=== PATIENT | male | born 1965 | race Caucasian/White ===

== ENCOUNTER 2025-07-30 11:28 | Outpatient (AMB) | payer OTHER, SELFPAY ==
--- NOTE | 2025-07-30 11:31 | A.OFFPC_ITS ---
Vital Signs 07/30/25 11:35 Height 5 ft 11.26 in Weight 242 lb BMI 33.5 BP 128/84 Blood Pressure Location Lt brachial Position Sitting Respiration 18 Pulse 60 Pulse Source Pulse Oximeter Temp 97.2 F Temp Source Temporal Artery Scan Pulse Oximetry (%) 97 Oxygen Delivery Method Room Air Intake Visit Reasons: Establish Care/Physical Web Merchandiser Required: No Accompanied by: Self / Same As Patient Allergies No Known Allergies Allergy (Verified 07/30/25 11:33) Medication List - Last Reconciled 07/30/25 by Ciro Espinoza MD No Known Home Meds Tobacco use date assessed: 07/30/25 Dental Screening Dental Screen Date: 07/30/25 Did you have a dental visit in the last 12 months?: No Did you have a dental problem in the last 6 months where you did not have access to dental care?: No Was dental information given to patient?: Patient has dentist HPI HPI Comments History of Present Illness Details History of Present Illness The patient is a 60-year-old male presenting to [facility] care with a new primary care physician. His previous primary care provider was last seen 9-12 months ago. The patient was diagnosed with stage 0 Chronic Lymphocytic Leukemia (CLL) in May 2013 and is managed under a [id number] protocol at [facility]. He reports he self-diagnosed the condition after experiencing 4-5 bouts of gout monthly, which prompted bloodwork that revealed elevated white blood cells. He is not on any targeted therapy, biologics, or immunotherapy for his CLL. He experiences significant cancer-related fatigue. The patient has a history of hyperlipidemia and gout, for which he was previously prescribed atorvastatin and allopurinol, but he stopped taking these medications 6-7 months ago. A review of recent labs from June 12 revealed stage 2 kidney disease. The patient reports a 50-pound weight gain in the last six months, which he attributes to poor diet and not exercising. 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 He has been unemployed for two years and is currently seeking disability benefits. A depression screening was positive for mild depression, which the patient describes as situational due to financial worries. Medical History: - Chronic Lymphocytic Leukemia (CLL), st age 1, diagnosed in May 2013. - History of gout, with multiple episode s leading to CLL diagnosis. - History of hyperlipidemia. - Mild depression, situational. - Stage 2 chronic kidney disease. Surgical History: - Bilateral rotator cuff repairs (twice on each shoulder). - Knee surgery (unspecified). - Cholecystectomy. Medications: - The patient is not currently on any me dications. - He was previously prescribed allopurin ol and atorvastatin but discontinued them 6-7 months ago. Family History: - Denies any known family history of hea rt disease, diabetes, or cancers. Diagnostic Results: - Lab results from June 12 were revi ewed: - CBC: White blood cell count is throug h the roof, consistent with leukemia. - Comprehensive Metabolic Panel: Results are good. - Liver Function: Results are good. - Kidney Function: Indicates stage 2 kid brenda disease. - LDH: Result is good. 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 - Social Support: Has a girlfriend. - Substance Use: Denies any history of s moking, alcohol use, or illicit drug use. - Exercise and Diet: Former athlete who is not currently exercising and eating poorly, resulting in a 50-pound weight gain over six months. Health Maintenance - A referral will be placed for a screen ing colonoscopy, as the patient is overdue. - Advised the patient to receive his rafael ual influenza vaccine, updated COVID-19 vaccine, and RSV vaccine, particularly given his immunocompromised state due to CLL. - Discussed the importance of resuming a regular exercise routine to aid in weight management, improve mood, and support overall health. - Baseline laboratory studies were order ed to screen for various health issues, including cholesterol, blood sugar, vitamin D, B12, and thyroid function. Patient was informed and verbally consented to the use of an ambient scribe for clinic note documentation during this visit. Vital signs reviewed. Comprehensive history, review of systems, and physical exam completed. Medications, allergies, and problem list reviewed and updated. Counseling provided on nutrition, regular exercise, sleep hygiene, and moderation of alcohol use. Discussed age-appropriate screenings (mammogram, colonoscopy, Pap, bone density) and immunizations (flu, COVID, shingles, Tdap). Screened for depression, fall risk, and home safety; no current concerns. Discussed stress management, dental and vision care, and importance of ongoing preventive follow-up. Routine labs ordered for metabolic and lipid screening. Patient educated on healthy lifestyle and agrees with the plan. [facility] Medical History (Updated 07/30/25 @ 12:04 by Ciro Espinoza MD) Annual physical exam CLL (chronic lymphocytic leukemia) Mild depression CALE (obstructive sleep apnea) Social History Housing: House Patient Tobacco Use Status: Never used Tobacco e-Cigarette/Vaping Use: Never Used service: No Current occupational status: unemployed Questionnaire PHQ-9 Over the last 2 weeks, how often have you been bothered by any of the following problems? 1. Little interest or pleasure in doing things: several days 2. Feeling down, depressed, or hopeless: several days 3. Trouble falling or staying asleep, or sleeping too much: not at all 4. Feeling tired or having little energy: more than half the days 5. Poor appetite or overeating: several days 6. Feeling bad about yourself - or that you are a failure or have let yourself or your family down: not at all 7. Trouble concentrating on things, such as reading the newspaper or watching television: not at all 8. Moving or speaking so slowly that other people could have noticed. Or the opposite - being so fidgety or restless that you have been moving around a lot more than usual: not at all 9. Thoughts that you would be better off or of hurting yourself in some way: not at all Total score: 5 Depression Screening Interpretation: Negative Depression Screening Done: Yes 54870 - PHQ-9 Billing: Yes Source: Developed by Drs. Hong Pascual, Leilani Trammell, Deng Church and colleagues, with an educational nelson from [employer]. Thrive Questionnaire Date Thrive assessed: 07/30/25 I am a: Patient What is your living situation today?: I have a steady place to live Within the past 12 months, did the food you bought not last and you didn't have the money to get more?: Never true Within the past 12 months, did you worry whether your food would run out before you got money to buy more?: Never true Do you have trouble paying for medicines?: No Do you have trouble getting transportation to medical appointments?: No Do you have trouble paying your heating and electricity bill?: No Do you have trouble taking care of your child, family member or friend?: No Do you have trouble with day-to-day activities such as bathing, preparing meals, shopping, managing finances, etc.?: No Are you currently unemployed and looking for a job?: No Are you interested in more education?: No THRIVE Score: 0 AUDIT C Alcohol Use Questionnaire (AUDIT-C) 1. How often do you have a drink containing alcohol?: Never 3. How often do you have six or more drinks on one occasion?: Never Total Score: 0 Score Reviewed/Action Taken: Yes WILLY-7 AMB Questionnaire WILLY-7 Date WILLY - 7 assessed: 07/30/25 Feeling nervous, anxious, or on edge: 1 = Several days Not being able to stop or control worryin = Not at all Worrying too much about different things: 0 = Not at all Trouble relaxin = Not at all Being so restless that it is hard to sit still: 0 = Not at all Becoming easily annoyed or irritable: 0 = Not at all Feeling afraid as if something awful might happen: 0 = Not at all Total WILLY-7 score (0-4 normal; 5-9 mild; 10-14 moderate; 15-21 severe): 1 Source: Developed by Drs. Hong Pascual, Leilani Trammell, Deng Church and colleagues, with an educational nelson from [employer]. WILLY-7 Assessment Billing WILLY-7 Assessment Tool: WILLY-7 Assessment 62501 Review of Systems Narrative Review of Systems - Constitutional: Reports significant fatigue, feeling tired more than half the days. - Psychiatric: Reports feeling down, depressed, and having little interest or pleasure in doing things for several days. - Neurological: Denies headaches, trouble concentrating. - HEENT: Denies vision changes. - Cardiovascular: Denies chest pain. - Respiratory: Denies shortness of breath. - Gastrointestinal: Denies nausea and vomiting; reports normal bowel movements. - Genitourinary: Reports normal urination. - Musculoskeletal: Denies swelling in the legs. All systems reviewed & are unremarkable except as reviewed in HPI and above Physical exam (Primary Care) Vital Signs: Last Vital Signs Temp 97.2 F 07/30/25 11:35 Pulse 60 07/30/25 11:35 Resp 18 07/30/25 11:35 BP 128/84 07/30/25 11:35 Pulse Ox 97 07/30/25 11:35 Oxygen Delivery Method Room Air 07/30/25 11:35 BMI result Body Mass Index 33.5 Tobacco/Smoking Status: Tobacco use Status Tobacco use date assessed 07/30/25 07/30/25 11:37 Patient Tobacco Use Status Never used Tobacco 07/30/25 11:37 e-Cigarette/Vaping Use Never Used 07/30/25 11:37 PHQ-9: PHQ-9 Score PHQ-9: Total score 5 07/30/25 11:48 Depression Screening Interpretation: Negative Thrive Assessment: Date of Thrive Assessment Date Thrive assessed 07/30/25 07/30/25 11:48 Narrative Physical Exam General: +Alert and oriented, Well nourished, No acute distress. Eye: Pupils are equal, round and reactive to light, Intact accommodation, Extraocular movements are intact, Normal conjunctiva, Vision unchanged. HENT: Normocephalic, Atraumatic, Tympanic membranes are clear, Normal hearing, Oral mucosa is moist, No pharyngeal erythema, Ear canals patent. Respiratory: Lungs CTA bilaterally, No wheeze, Respirations are non-labored. Cardiovascular: Regular rate, Regular rhythm, S1 auscultated, S2 auscultated, No murmur, Good pulses equal in all extremities, Normal peripheral perfusion, No edema. Gastrointestinal: Soft, Non-tender, Non-distended, Normal bowel sounds, No organomegaly. Musculoskeletal: Normal range of motion, Normal strength, No tenderness, No swelling, No deformity, Normal gait. Integumentary: Warm, Dry, [place], Intact. Neurologic: Alert, Oriented, Normal sensory, Normal motor function, No focal defects, Cranial Nerves II-XII are grossly intact, Normal deep tendon reflexes. Psychiatric: Cooperative, Appropriate mood & affect, Normal judgment, Positive for mild depression. Coding Level of Care Code New Pt Level 3 (73107) New Pt Prev Care 40-64y(29326) Diagnoses CALE (obstructive sleep apnea) G47.33 Mild depression F32.A CLL (chronic lymphocytic leukemia) C91.10 Annual physical exam Z00.00 Additional Codes WILLY-7 Assessment Billing - WILLY-7 Assessment Tool: WILLY-7 Assessment 32357 ([id number]) PHQ-9 - 57078 - PHQ-9 Billing: Yes ([id number]) Comment [id number] Assessment & Plan Assessment & Plan (1) CALE (obstructive sleep apnea): Comment: - The patient's significant fatigue is considered multifactorial, related to his CLL, depression, and possible sleep apnea. - A workup will include baseline labs (including vitamin D, B12, TSH) to assess for other organic causes. - A referral for a sleep study will be made to evaluate for sleep apnea, given recent weight gain and snoring. Code(s): G47.33 - Obstructive sleep apnea (adult) (pediatric) Category: Medical (2) Mild depression: Comment: - A depression screen was positive for mild depression, which the patient feels is situational due to unemployment and financial stress. - The patient declined a trial of antidepressant medication. - The patient was encouraged to resume exercising, which may help improve his mood. Code(s): F32.A - Depression, unspecified Category: Medical (3) CLL (chronic lymphocytic leukemia): Comment: - The patient has a known diagnosis of stage 0 CLL since 2012 and is managed under a wait and watch protocol with his oncologist at [facility]. - A review of labs from June 12 showed a very high white blood cell count, consistent with his diagnosis. - He is not currently on any targeted therapy or immunotherapy. - Plan is to continue current management with his oncology team. Code(s): C91.10 - Chronic lymphocytic leukemia of B-cell type not having achieved remission Category: Medical (4) Annual physical exam: Comment: - A referral will be placed for a screening colonoscopy as the patient is overdue. - The patient was advised to get his annual influenza, updated COVID-19, and RSV immunizations, as he is immunocompromised. Code(s): Z00.00 - Encounter for general adult medical examination without abnormal findings Category: Medical Plan: Health Maintenance: - A referral will be placed for a screening colonoscopy, as the patient is overdue. - Advised the patient to receive his annual influenza vaccine, updated COVID-19 vaccine, and RSV vaccine, particularly given his immunocompromised state due to CLL. - Discussed the importance of resuming a regular exercise routine to aid in weight management, improve mood, and support overall health. - Baseline laboratory studies were ordered to screen for various health issues, including cholesterol, blood sugar, vitamin D, B12, and thyroid function. Patient was informed and verbally consented to the use of an ambient scribe for clinic note documentation during this visit. Vital signs reviewed. Comprehensive history, review of systems, and physical exam completed. Medications, allergies, and problem list reviewed and updated. Counseling provided on nutrition, regular exercise, sleep hygiene, and moderation of alcohol use. Discussed age-appropriate screenings (mammogram, colonoscopy, Pap, bone density) and immunizations (flu, COVID, shingles, Tdap). Screened for depression, fall risk, and home safety; no current concerns. Discussed stress management, dental and vision care, and importance of ongoing preventive follow-up. Routine labs ordered for metabolic and lipid screening. Patient educated on healthy lifestyle and agrees with the plan. Plan I discussed with the patient that his prominent symptom of fatigue is likely multifactorial, stemming from his underlying CLL, situational depression, and a high suspicion for sleep apnea given his recent 50-pound weight gain and reports of snoring. We discussed the results of his depression screen, which indicated mild depression, and he agreed it felt situational due to his unemployment and financial stress; he declined a trial of medication at this time. The patient consented to a referral for a sleep study and for comprehensive baseline lab work. We also discussed the importance of weight loss through exercise, which would not only improve his mood but could also mitigate or resolve sleep apnea if diagnosed. I placed a referral for a screening colonoscopy as he is past due. I strongly recommended he obtain his annual flu, updated COVID-19, and RSV vaccines due to his immunocompromised status. The plan is to follow up in six months or sooner if needed to review results and address any concerns. Orders: Orders Complete Blood Count Auto Diff Today Z00.00 - Encounter for general adult medical examination without abnormal findings Comprehensive Met. Panel Today Z00.00 - Encounter for general adult medical examination without abnormal findings Hemoglobin A1c Today Z00.00 - Encounter for general adult medical examination without abnormal findings Hepatitis A,B,C Profile Today Z00.00 - Encounter for general adult medical exa mination without abnormal findings HIV Ab/Ag Today Z00.00 - Encounter for general adult medical examination without abnormal findings Microalbumin, Random (w Creat) Today Z00.00 - Encounter for general adult medical examination without abnormal findings Syphilis Screen Today Z00.00 - Encounter for general adult medical examination without abnormal findings TSH reflex Free T4 Today Z00.00 - Encounter for general adult medical examination without abnormal findings RT PSG in-lab sleep study Today G47.33 - Obstructive sleep apnea (adult) (pediatric) Lipid Panel Today Z00.00 - Encounter for general adult medical examination without abnormal findings Vitamin D 25-OH Total Today Z00.00 - Encounter for general adult medical examination without abnormal findings Referrals Open Access Screening Colonoscopy Referral Z12.11 - Encounter for screening for malignant neoplasm of colon Patient Instructions: - Go to the hospital lab across the street today to have your blood drawn. - You will be contacted by our office to schedule a colonoscopy and a sleep study. - It is very important that you get your annual flu shot, the updated COVID-19 vaccine, and the RSV vaccine. - Focus on resuming regular exercise to help with weight loss, which will also improve your mood and overall health. - Please schedule a follow-up appointment in about six months, or call us sooner if any new problems arise.
[2025-07-30 11:35] VITALS: BP 128/84; PULSE 60; RESP 18; TEMP 36.2; O2SAT 97; BMI 33.5
--- OUTSIDE RECORDS SUMMARY | 2025-07-31 02:17 | XMS_ITS | Clinical Summary ---
Author Organization [facility] Address [address] [place] [address] Care Team Providers Care Casing Running Machine Tender Name Role Phone Flavio Garcia Primary Care Provider [phone] Allergies No known active allergies Medications atorvastatin (LIPITOR) 40 mg tablet SMARTSI Tablet(s) By Mouth Daily 05/25/2024 Active allopurinoL (ZYLOPRIM) 100 mg tablet SMARTSI Tablet(s) By Mouth Daily Active fish oil 340-1,000 mg capsule Take 1,000 mg by mouth once a day. Active glucosamine sulfate (Glucosamine) 500 mg tablet Take by mouth. Active multivitamin (THERAGRAN) tablet Take 1 tablet by mouth once a day. Active aspirin tablet 325 mg Take 1 tablet (325 mg total) by mouth once a day. 14 tablet 07/27/2024 Active acetaminophen (TYLENOL) 500 mg tablet Take 1 tablet (500 mg total) by mouth every 6 hours as needed for pain. 40 tablet 07/27/2024 Active cephalexin (KEFLEX) 500 mg capsule Take 1 capsule (500 mg total) by mouth 4 times a day. 12 capsule 07/27/2024 Active Active Problems Problem Noted Date Diagnosed Date Impingement of left shoulder 06/06/2024 Subacromial impingement of right shoulder 2023 Acute pain of right shoulder 10/24/2018 Anxiety as acute reaction to exceptional stress 06/29/2017 Health care maintenance 06/29/2017 Cough 09/22/2016 Asthma, cold induced, mild intermittent, uncompl icated 11/07/2015 Cough variant asthma 10/08/2015 Gastroesophageal reflux disease 09/26/2015 Rhinitis 09/26/2015 Acute nonsuppurative otitis media of right ear 1 Bipolar affective disorder 06/26/2015 Viral gastroenteritis 01/13/2015 Elbow pain 03/01/2014 Acute pharyngitis 09/20/2013 Folliculitis 09/15/2012 Finger injury 06/04/2011 Pain, joint, shoulder 02/02/2011 Immunizations Immunization Administration Dates Next Due INFLUENZA, SPLIT VIRUS, TRIVALENT, PF 07/11/2013 ,06/04/2011 Influenza, Trivalent, MDV, Injectable 06/21/2015 ,07/24/2012 Seasonal Influenza, Intrader mal, Preservative Free 06/29/2017 Tetanus Toxoid, Reduced Diph theria Toxoid, and Acellular Pertussis Vaccine, Adsorbed 11/07/2015 Tuberculin Skin Test; Purifi ed Protein Derivative Solution, Intradermal 05/20/2015,07/24/2012,06/04/2011 Family History Medical History Relation Name Comments Heart disease Father Hypertension Father Other Mother Family history of Deep vein thrombosis, antepartum Relation Name Status Comments Father Alive Mother Alive Social History Tobacco Use Types Packs/Day Years Used Date Smoking Tobacco: Never Smokeless Tobacco: Never Comments:: Alcohol Use Standard Drinks/Week Comments Not Currently 0 (1 standard drink = 0.6 oz pur e alcohol) Sex and Gender Information Value Date Recorded Sex Assigned at Male 11/01/2023 6:08 AM EST Legal Sex Male 9:50 AM EDT Gender Identity Male 11/01/2023 6:08 AM EST Sexual Orientation Straight 11/01/2023 6: 08 AM EST Last Filed Vital Signs Vital Sign Reading Time Taken Comments Blood Pressure 120/80 12/25/2018 8:21 AM EDT Pulse 55 12/25/2018 8:21 AM EDT Temperature 36.8 C (98.2 F) 12/25/2018 8:21 AM EDT Respiratory Rate 18 12/25/2018 8:21 AM EDT Oxygen Saturation 96% 12/25/2018 8:21 AM EDT Inhaled Oxygen Concentration - - Weight 98.3 kg (216 lb 12.8 oz) 12/25/2018 8:21 AM EDT Height 182.9 cm (6') 12/25/2018 8:21 AM EDT Body Mass Index 29.4 12/25/2018 8:21 AM EDT Plan of Treatment Health Maintenance Due Date Last Done Comments HIV Screening 1965 Hepatitis C Screening 1965 RSV Vaccine (60+ years old and patients) (1 - Risk 50-74 years 1-dose series) 2015 Colonoscopy 11/18/2016 11/19/2015 Alcohol/Substance Use Screening 09/12/2024 Depression Screening and Follow-Up 09/12/2024 Social Drivers of Health Annual Screening 09/12/2024 Influenza Vaccine (#1) 2025 , 07/26/2022, 06/23/2021, Additional history exists COVID-19 Vaccine ( season) 2025 06/16/2023, 07/26/2022, 04/16/2022, Additional history exists DTaP,Tdap,and Td Vaccines (2 - Td or Tdap) 11/07/2025 11/07/2015 Pneumococcal Vaccine: 50+ Years Completed 06/24/2023 Zoster Vaccines Completed 08/29/2023, 06/29/2023 Hepatitis B Vaccines Aged Out No long er eligible based on patient's age to complete this topic Procedures * Due to [place] [employer] law, this organization might not be sharing negative HIV tests. Procedure Name Priority Date/Time Associated Diagnosis Comments COLONOSCOPY 11/19/2015 11:42 AM EST from Last 3 Months or Most Recently Relevant to Health Maintenance Results * Due to [facility] law, this organization might not be sharing negative HIV tests. * COLONOSCOPY (11/19/2015 11:42 AM EST) Narrative Procedure Note Matias Russell MD - 11/19/2015 11:42 AM EST Patient Name: Stefan Malagon Procedure Date: 11/19/2015 11:42 AM Date of : 1965 Age: 50 Room: Procedure Room 3 Gender: Male Note Status: Finalized Attending MD: Matias Russell MD Procedure: Colonoscopy Indications: Screening for colorectal malignant neoplasm Providers: Matias Russell MD Referring MD: Maury Barrow MD (Referring MD) Requesting Provider: Medicines: Monitored Anesthesia Care Complications: No immediate complications. Procedure: After I obtained informed consent, the scope was passed under direct vision. Throughout the procedure, the patient's blood pressure, pulse, and oxygen saturations were monitored continuously. The Colonoscope was introduced through the anus and advanced to theterminal ileum, with identification of the appendiceal orificeand IC valve. The colonoscopy was performed without difficulty. The patient tolerated the procedure well.The quality of the bowel preparation was good. The bowel preparation used was MoviPrep. Findings: The perianal and digital rectal examinations were normal. The terminal ileum appeared normal. A 6 mm polyp was found in the ascending colon. The polyp was flat.The polyp was removed with a hot snare. Resection and retrieval were complete. Three sessile polyps were found in the transverse colon. The polypswere 3 to 4 mm in size. These polyps were removed with a cold biopsyforceps. Resection and retrieval were complete. Three sessile polyps were found in the descending colon. The polypswere 4 to 5 mm in size. These polyps were removed with a cold snare. Resection and retrieval were complete. A 1 mm polyp was found in the sigmoid colon. The polyp was sessile.The polyp was removed with a cold snare. Resection and retrieval were complete. A 5 mm polyp was found in the rectum. The polyp was sessile. Thepolyp was removed with a cold snare. Resection and retrieval werecomplete. Internal hemorrhoids were found during retroflexion. The hemorrhoids were small. A few small-mouthed diverticula were found in the sigmoid colon andin the descending colon. The exam was otherwise without abnormality. Impression: - The examined portion of the ileum was normal. - One 6 mm polyp in the ascending colon. Resected and retrieved. - Three 3 to 4 mm polyps in the transverse colon.Resected and retrieved. - Three 4 to 5 mm polyps in the descending colon.Resected and retrieved. - One 1 mm polyp in the sigmoid colon. Resected and retrieved. - One 5 mm polyp in the rectum. Resected andretrieved. - Internal hemorrhoids. - Diverticulosis in the sigmoid colon and in the descending colon. - The examination was otherwise normal. Recommendation: - Discharge patient to home. - Resume previous diet. - Await pathology results. - Telephone endoscopist for pathology results in 1week. - Repeat colonoscopy in 1 year for surveillance. - Return to primary care physician as previouslyscheduled. Attending Participation: I personally performed the entire procedure. Matias Russell MD 11/19/2015 1:52:37 PM This report has been signed electronically. Number of Addenda: 0 Note Initiated On: 11/19/2015 11:42 AM CC Letter to: Maury Barrow MD (CC) Estimated Blood Loss: Estimated blood loss was minimal. Matias Russell MD PROVATION PROCEDURES Final Resul t from Last 3 Months or Most Recently Relevant to Health Maintenance Insurance [employer] Care Teams Casing Running Machine Tender Relationship Specialty Start Date End Date Flavio Garcia PCP - General Internal Medicine 12/25/18
--- OUTSIDE RECORDS SUMMARY | 2025-07-31 02:17 | XMS_ITS | Clinical Summary ---
Author Organization [facility] Address [address] [place] [address] Care Team Providers Care Cougar Hunter Name Role Phone Unknown, Primary Care Provider Unavailabl e Social History Tobacco Use Types Packs/Day Years Used Date Smoking Tobacco: Never Assessed Sex and Gender Information Value Date Recorded Sex Assigned at Not on file Gender Identity Not on file Sexual Orientation Not on file Job Start Date Occupation Industry Not on file Not on file Not on file Plan of Treatment Health Maintenance Due Date Last Done Comments Hepatitis C Screening 1965 Depression Screening 1977 Preventative Health Evaluation 1983 Colon Cancer Screening (Colonoscopy) 2010 Shingrix-Zoster Vaccine (1 of 2) 2015 COVID-19 Vaccine (2 - season) 2025 12/22/2020 Influenza Vaccine (#1) 2025 , 11/10/2018, 11/10/2018, Additional history exists DTap / Tdap / Td (2 - Td or Tdap) 11/07/2025 11/07/2015 RSV Adult > 60+ Yrs or (1 - 1-dose 75+ series) 2040 Hepatitis B Vaccines Aged Out No long er eligible based on patient's age to complete this topic Pneumococcal Vaccine Aged Out No long er eligible based on patient's age to complete this topic RSV Ped < 20 months Aged Out No longe r eligible based on patient's age to complete this topic Care Teams Cougar Hunter Relationship Specialty Start Date End Date Unknown, PCP - General 04/27/23
--- OUTSIDE RECORDS SUMMARY | 2025-07-31 02:17 | XMS_ITS | Encounter Summary ---
Author Organization [facility] Address [address] [place] [address] Care Team Providers Care Procurement Services Manager Name Role Phone Flavio Garcia MD Primary Care Provider [phone] Unknown Pcp, Non [facility] Primary Care Provider Unava ilable Reason for Visit * Reason Comments No Show Encounter Details Date Type Department Care Team (Late st Contact Info) Description 05/25/2019 Telephone [facility] [address] [place] [id number] Erlin Lewis MD [address] [place] [address] No Show Social History Tobacco Use Types Packs/Day Years Used Date Smoking Tobacco: Never Smokeless Tobacco: Never Sex and Gender Information Value Date Recorded Sex Assigned at Not on file Legal Sex Male 3:47 PM EDT Gender Identity Not on file Sexual Orientation Not on file documented as of this encounter Miscellaneous Notes * Telephone Encounter - Opal Motta - 06/22/2019 1:24 PM EDT Your patient did not show for his GI procedure at [facility] on 05/25[facility]19 with Erlin Lewis MD. We have attempted to call him x2 to reschedule and sent him 2 certified letters to call us to reschedule. There has been no response in over 10 business days. If you still want this procedurefor him, please have your office follow up with him and have him call our office. We will proceed with scheduling if we hear from this patient. * Telephone Encounter - Opal Motta - 06/06/2019 10:57 AM EDT Left message for patient to call [facility] to reschedule. Sent Certified # [id number]. * Telephone Encounter - Opal Motta - 05/28/2019 12:18 PM EDT Left message for patient to call [facility] to reschedule. Sent Certified # [id number] and standard. * Telephone Encounter - Opal Motta - 05/25/2019 11:14 AM EDT This patient no showed his colonoscopy today 05/25/[address] Lewis. I left a message for the patient to call the endoscopy center back to reschedule. documented in this encounter Plan of Treatment Not on file documented as of this encounter Visit Diagnoses Not on filedocumented in this encounter Care Teams Procurement Services Manager Relationship Specialty Start Date End Date Flavio Garcia MD [address] [place] [id number] PCP - General Internal Medicine 04/27/18 01/28/21 Unknown Pcp, Non [facility] PCP - General 01/29/21 documented as of this encounter
--- OUTSIDE RECORDS SUMMARY | 2025-07-31 02:18 | XMS_ITS | Clinical Summary ---
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 1 Tube 2 9 Active Sodium Chloride 0.9 % solution Infuse 1,000 mL/hr into a venous catheter - Administer intravenously at the rate of 1000ml per hour 1000 mL 9 Active Active Problems No known active problems Immunizations Immunization Administration Dates Next Due Influenza,injectable,quad,Prsrv Fr 11/10/2018, Influenza,seasonal,intradermal,prsrv fr 06/29/20 17 Influenza,seasonal,trivalent ,preservative (FLUZONE MDV) 06/21/2015,07/24/2012 Tdap 11/07/2015 influenza,seasonal,trivalent ,PF (Fluzone, Fluarix, Flulaval) 07/11/2013,06/04/2011 Social History Tobacco Use Types Packs/Day Years Used Date Smoking Tobacco: Never Smokeless Tobacco: Never Intimate Partner Violence Answer Date R ecorded Fear of Current or Ex-Partner Not on file Emotionally Abused Not on file 05/05/2023 Physically Abused Not on file 05/05/2023 Sexually Abused Not on file 05/05/2023 Feel Safe at Home Not on file 05/05/2023 Sex and Gender Information Value Date Recorded Sex Assigned at Not on file Legal Sex Male 3:47 PM EDT Gender Identity Not on file Sexual Orientation Not on file Last Filed Vital Signs Vital Sign Reading Time Taken Comments Blood Pressure 121/82 08/26/2019 10:30 AM EST Pulse 78 08/26/2019 10:30 AM EST Temperature 37.2 C (98.9 F) 08/26/2019 10:30 AM EST Respiratory Rate 18 08/26/2019 10:30 AM EST Oxygen Saturation 98% 08/26/2019 10:30 AM EST Inhaled Oxygen Concentration - - Weight 97.3 kg (214 lb 9.6 oz) 12/22/2018 9:53 A M EDT Height 177.8 cm (5' 10 ) 05/01/2018 11:55 AM EDT Body Mass Index 30.79 05/01/2018 11:55 AM EDT Plan of Treatment Health Maintenance Due Date Last Done Comments Pneumococcal 50+ years (1 of 1 - PCV) 2015 Zoster (Shingrix) (1 of 2) 2015 COVID-19 Vaccine ( - 2024- season) 2025 Influenza (#1) 2025 11/10/2018, 06/12, 07/12/2016, Additional history exists DTaP/Tdap/Td (2 - Td or Tdap) 11/07/2025 11/07/2015 RSV (1 - 1-dose 75+ series) 2040 Hepatitis C Screening Completed 06/27/2018 HPV Vaccine (No Doses Required) Completed Hep A Aged Out No longer eligi ble based on patient's age to complete this topic Hep B Aged Out No longer eligi ble based on patient's age to complete this topic Hib Aged Out No longer eligi ble based on patient's age to complete this topic Meningococcal ACWY Aged Out No longer eligible based on patient's age to complete this topic Zoster (Zostavax) Discontinued Procedures * Due to [place] [employer] law, this organization might not be sharing negative HIV tests. Procedure Name Priority Date/Time Associated Diagnosis Comments HEPATITIS C AB WITH REFLEX TO RNA PCR, SERUM Routine 06/27/2018 3:55 PM EDT Screening examination for infectious disease from Last 3 Months or Most Recently Relevant to Health Maintenance Results * Due to [employer] law, this organization might not be sharing negative HIV tests. * HEPATITIS C AB WITH REFLEX TO RNA PCR, SERUM (06/27/2018 3:55 PM EDT) Hepatitis C virus Ab NON-REACTI VE NON-REACT SA[facility] Hepatitis C virus Ab Signal/Cutoff 0.00 <1.00 [facility] 06/27/2018 3:55 PM EDT 06/27/2018 10:15 PM EDT Narrative Resulting Agency Comment [id number] us Flavio Garcia MD LABORATORY Final Result [facility] [address] [place] [address] from Last 3 Months or Most Recently Relevant to Health Maintenance Insurance [employer] Care Teams Counter Helper Relationship Specialty Start Date End Date Unknown Pcp, Non Rmg PCP - General 01/29/21
--- OUTSIDE RECORDS SUMMARY | 2025-07-31 02:18 | XMS_ITS | Clinical Summary ---
Author Organization [facility] Address [address] [facility] [address] [place] [address] Phone Care Team Providers Care Patient Care Coordinator Name Role Phone Oscar Hayden MD Primary Care Provid er Self-Referred, Patient Unavailable Unavailab Jose J Herron MD Unavailable [phone] Jayshree PeckSW Unavailable [phone] Allergies No known active allergies Medications multivitamin per tablet Take 1 tablet by mouth daily. Active glucosamine sulfate 500 mg Tab Take by mouth. Active allopurinol (ZYLOPRIM) 100 MG tablet Take 100 mg by mouth daily. 07/01/2023 Active atorvastatin (LIPITOR) 40 MG tablet Take 40 mg by mouth daily. 05/25/2024 Active docosahexaenoic acid/epa (FISH OIL ORAL) Take 1,000 mg by mouth daily. Active aspirin 325 MG tablet Take 325 mg by mouth daily. 07/27/2024 Active Active Problems Problem Noted Date Diagnosed Date CLL (chronic lymphocytic leukemia) 06/14/2023 Health care maintenance 11/10/2018 Assessment & Plan (11/11/2018 3:46 AM EST): Colon cancer screening: Had colonoscopy in November 2015 (at age 50) which was notable for multiple polyps. Repeat in one year. HIV and hepatitis C screening: I informed him that one-time hepatitis C and HIV screening are recommended in view of his age even in the absence of the risk factors. Patient declined both screenings today. Mentions he generally gets screened for hepatitis C annually at work, and has undergone full STD screening after divorce last year, which was negative. Prostate cancer screening: Obtained blood work for PSA (screening). Discussed the guidelines for prostate cancer screening. Patient agrees with this plan. Labs: Obtained blood work for HbA1c, lipid panel, CBC, and comprehensive metabolic panel. Relevance explained. Immunization: Has annual vaccines at work including hepatitis B. Had Tdap in 2016. Due for influenza vaccine. Administered Influenza Vaccine (3yr up) Quadrivalent Preservative Free IM today. Encounters Date Type Department Care Team Description 07/25/2025 Orders Only [facility] [address] [facility] CRPZN [address] [place] [address] Juancho Worthington MD, PhD 06/25/2025 Orders Only [facility] [address] [facility], 7th [place] [address] Tana Hamilton MD, MPH CLL (chronic lymphocytic leukemia) (Primary Dx) 06/21/2025 1:00 PM EDT Telemedicine [facility], Division of Hematologic Oncology, [facility] [address] [facility], 7th [place] [address] Tana Hamilton MD, MPH CLL (chronic lymphocytic leukemia) (Primary Dx) 06/12/2025 2:27 PM EDT - 06/12/2025 11:59 PM EDT Hospital Encounter [facility] [address] [place] [address] Tana Hamilton MD, MPH Discharge Disposition: Home or Self Care from Last 3 Months Immunizations Immunization Administration Dates Next Due INFLUENZA, SPLIT VIRUS, TRIVALENT PF 07/11/2013, 06/04/2011 INFLUENZA, SPLIT VIRUS, TRIV ALENT W/ PRESERVATIVE IM 06/21/2015,07/24/2012 Influenza Quadrivalent Preservative Free IM 03/0 09/2018 Influenza trivalent preserva tive free intradermal 06/29/2017 PPD Test 05/20/2015,07/24/2012,06/04/2011 Tdap 11/07/2015 Social History Tobacco Use Types Packs/Day Years Used Date Smoking Tobacco: Never Smokeless Tobacco: Never Education Answer Date Recorded Are you interested in more education? Not on choco e 01/07/2023 Are you concerned about learning? Not on file 01/07/2023 No 01/07/2023 No 01/07/2023 Digital Access Answer Date Recorded No 02/04/2023 No 02/04/2023 Reliable internet access at home? Not on file 02/04/2023 Device with a working camera? Not on file Sex and Gender Information Value Date Recorded Sex Assigned at Male 05/30/2023 1:06 PM EDT Legal Sex Male 11:28 AM EST Gender Identity Male 05/30/2023 1:06 PM EDT Sexual Orientation Straight 05/30/2023 1: 06 PM EDT Last Filed Vital Signs Vital Sign Reading Time Taken Comments Blood Pressure 129/63 10/16/2024 12:16 PM EST Pulse 57 10/16/2024 12:16 PM EST Temperature 36.7 C (98.1 F) 10/16/2024 12:15 PM EST Respiratory Rate 18 10/16/2024 12:15 PM EST Oxygen Saturation 98% 10/16/2024 12:16 PM EST Inhaled Oxygen Concentration - - Weight 86.4 kg (190 lb 7.6 oz) 10/16/2024 12:15 PM EST Height 176.9 cm (5' 9.65 ) 10/16/2024 12:[address] Body Mass Index 27.61 10/16/2024 12:15 PM EST Plan of Treatment Upcoming Encounters Date Type Department Care Team (Late st Contact Info) Description 10/23/2025 12:30 PM EST Blood Draw Laboratory Services, [facility] [address] [place] [address], [address] [place] [address] Tana Hamilton MD, MPH [address] [place] [address], [address] [place] [id number] [email or web address] 10/23/2025 1:30 PM EST Office Visit Center for Lymphoma, Division of Hematologic Oncology, [facility] [address] [facility], 7th [place] [address] Tana Hamilton MD, MPH [address] [facility], 2nd [place] [address] [email or web address] Health Maintenance Due Date Last Done Comments HIV ONE-TIME SCREENING (18-65 YEARS) 1983 SMOKING STATUS SCREENING (Once After 26 Yrs) 1991 COLOGUARD 2010 COLONOSCOPY 2010 COLORECTAL CANCER SCREENING 2010 FIT TEST 2010 FOBT 2010 SIGMOIDOSCOPY 2010 VIRTUAL COLONOSCOPY 2010 DEPRESSION SCREENING 11/11/2019 11/10/2018 LIPID PANEL 11/11/2023 11/10/2018 INFLUENZA VACCINE (#1) 2025 , 06/16/2023, 07/26/2022, Additional history exists COVID-19 VACCINE ( season) 2025 06/16/2023, 07/26/2022, 04/16/2022, Additional history exists Adult Td,Tdap Booster 11/07/2025 11/07/2015 CREATININE LEVEL 06/12/2026 06/12/2025, 01/2025, 02/20/2025, Additional history exists SCREENING FOR DIABETES 06/12/2028 06/12/2025 RSV VACCINE (1 - 1-dose 75+ series) 2040 HEPATITIS C SCREENING Completed 06/27/2018 PNEUMOCOCCAL VACCINES (50+ years) Completed 06/24/2023 ZOSTER VACCINES Completed 08/29/2023, 06/29/2023 HEPATITIS A VACCINES Aged Out No long er eligible based on patient's age to complete this topic HIB VACCINES Aged Out No longer eligi ble based on patient's age to complete this topic MENINGOCOCCAL VACCINES (ACWY) Aged Out No longer eligible based on patient's age to complete this topic MENINGOCOCCAL VACCINES (B) Aged Out N o longer eligible based on patient's age to complete this topic Medical Devices Not on file Procedures Procedure Name Priority Date/Time Associated Diagnosis Comments CBC AND DIFFERENTIAL Routine 06/12/2025 2:28 PM EDT CLL (chronic lymphocytic leukemia) COMPREHENSIVE METABOLIC PANEL (CMP) Routine 06/12/2025 2:28 PM EDT CLL (chronic lymphocytic leukemia) LDH Routine 06/12/2025 2:28 PM EDT CLL (chronic lymphocytic leukemia) LIPID PANEL Routine 11/10/2018 10:19 AM EST Health care maintenance from Last 3 Months or Most Recently Relevant to Health Maintenance Results * LDH (06/12/2025 2:28 PM EDT) LDH 200 118 - 273 U/L [facility] Blood 06/12/2025 2:28 PM EDT 06/12/2025 2:49 PM EDT us Tana Hamilton MD, MPH LAB BLOOD BKR ORDERABLES F inal Result [address] [address] * (ABNORMAL) Comprehensive metabolic panel (06/12/2025 2:28 PM EDT) SODIUM 140 133 - 146 mmol/L [facility] POTASSIUM 4.5 3.3 - 5.1 mmol/L [facility] CHLORIDE 104 96 - 108 mmol/L [facility] CO2 23 21 - 35 mmol/L [facility] BUN 14 6 - 19 mg/dL [facility] CREATININE 1.20 0.5 - 1.5 mg/dL [facility] GLUCOSE 100(H) 70 - 99 mg/dL [facility] ALBUMIN 4.9(H) 3.9 - 4.8 g/dL [facility] TOTAL PROTEIN 6.8 6.5 - 8.0 g/dL [facility] CALCIUM 9.9 8.4 - 10.3 mg/dL [facility] ALKALINE PHOSPHATASE 70 39 - 117 U/L [facility] TOTAL BILIRUBIN 0.5 0.0 - 1.2 mg/dL [facility] AST 33 0 - 37 U/L [facility] ALT 25 0 - 40 U/L [facility] GLOBULIN 1.9 1 - 4.8 g/dL [facility] EGFR 69 >59 mL/min/1.7 3m2 [facility] Comment:Estimated glomerular filtration rate calculated using the CKD-EPI refit equation. ANION GAP 18 10 - 20 mmol/L [facility] Blood 06/12/2025 2:28 PM EDT 06/12/2025 2:49 PM EDT us Tana Hamilton MD, MPH LAB BLOOD BKR ORDERABLES F inal Result [address] [address] * (ABNORMAL) CBC and differential (06/12/2025 2:28 PM EDT) WBC 84.41(HH) 4.00 - 11.00 K/uL [facility] Comment: VERIFIED BY REPEAT ANALYSIS This result has been called to DR TANA HAMILTON by [email or web address] on 06/12/2025 20:34:54, and has been read back. RBC 4.97 4.50 - 5.90 M/uL [facility] HGB 15.1 13.5 - 17.5 g/dL [facility] HCT 46.6 41.0 - 53.0 % [facility] PLT 278 150 - 450 K/uL [facility] MCV 93.8 80.0 - 100.0 fL [facility] MCH 30.4 27.0 - 31.0 pg [facility] MCHC 32.4 32.0 - 36.0 g/dL [facility] RDW 13.1 11.5 - 14.5 % [facility] MPV 10.3 8.4 - 12.0 fL [facility] NRBC 0.00 0.00 /100 WBCs [facility] ABSOLUTE NRBC 0.00 0.00 K/uL [facility] DIFF METHOD Auto [facility] NEUTS 6.0(L) 48.0 - 76.0 % [facility] LYMPHS 91.9(H) 18.0 - 41.0 % [facility] Comment:Smudge cells present Mostly atypical lymphs seen on slide MONOS 1.6(L) 4.0 - 11.0 % [facility] EOS 0.1 0.0 - 5.0 % [facility] BASOS 0.2 0.0 - 1.5 % [facility] Granulocytes, immature (%) 0.2 0.0 - 0.9 % [facility] ABSOLUTE NEUTS 5.10 1.92 - 7.60 K/uL [facility] ABSOLUTE LYMPHS 77.56(H) 0.72 - 4.10 K/uL [facility] ABSOLUTE MONOS 1.36(H) 0.16 - 1.10 K/uL [facility] ABSOLUTE EOS 0.05 0.00 - 0.50 K/uL [facility] ABSOLUTE BASOS 0.19(H) 0.00 - 0.15 K/uL [facility] Granulocytes, immature 0.15(H) 0.00 - 0.09 K/uL [facility] Blood 06/12/2025 2:28 PM EDT 06/12/2025 2:49 PM EDT us Tana Hamilton MD, MPH LAB BLOOD BKR ORDERABLES F inal Result [facility] [address] [place] [address] * (ABNORMAL) Lipid panel (11/10/2018 10:19 AM EST) HDL 44 35 - 100 mg/dL [facility] CHOLESTEROL 234 mg/dL [facility] TRIGLYCERIDES 109 40 - 150 mg/dL [facility] LDL 168(H) 50 - 129 mg/dL [facility] CARDIAC RISK RATIO 5.3(H) 0.0 - 5.0 M [facility] NON-HDL CHOLESTEROL 190 mg/dL [facility] Comment:NCEP ATP III guideli verna suggest a non-HDL cholesterol goal 30 mg/dl higher than the patient-specific LDL goal. 11/10/2018 10:1 9 AM EST 11/10/2018 10:26 AM EST Patrick Pena MD LAB BLOOD BKR ORDERABLES F inal Result [address] [address] from Last 3 Months or Most Recently Relevant to Health Maintenance Insurance ACO ACO ACO ACO ACO ACO Care Teams Patient Care Coordinator Relationship Specialty Start Date End Date Oscar Hayden MD [address] [place] [phone] PCP - General Internal Medicine 04/19/23 Self-Referred, Patient 05/30/23 Jose J Love MD [email or web address] 06/22/23 Jayshree Peck [address] [address] [email or web address] It Service Delivery Manager 01/13/24 Additional Source Comments The information contained in this document represents components of the legal health record. It is not the complete legal health record.[facility]
--- OUTSIDE RECORDS SUMMARY | 2025-07-31 02:19 | XMS_ITS | Encounter Summary ---
Author Organization [facility] Address [address] [place] [address] Care Team Providers Care Product Safety Technical Assistant Name Role Phone Flavio Garcia MD Primary Care Provider [phone] Unknown Pcp, Non [facility] Primary Care Provider Unava ilable Encounter Details Date Type Department Care Team (Late st Contact Info) Description 12/22/2018 Orders Only [facility] [address] [place] [phone] Flavio Gacria MD [address] [place] [address] Social History Tobacco Use Types Packs/Day Years Used Date Smoking Tobacco: Never Smokeless Tobacco: Never Sex and Gender Information Value Date Recorded Sex Assigned at Not on file Legal Sex Male 3:47 PM EDT Gender Identity Not on file Sexual Orientation Not on file documented as of this encounter Plan of Treatment Not on file documented as of this encounter Procedures * Due to [place] Chatterfly law, this organization might not be sharing negative HIV tests. Procedure Name Priority Date/Time Associated Diagnosis Comments CULTURE, VIRAL, BODY FLUIDS, TISSUES Routine 12/22/2018 10:43 AM EDT Genital warts documented in this encounter Results * Due to [place] Chatterfly law, this organization might not be sharing negative HIV tests. * CULTURE, VIRAL, BODY FLUIDS, TISSUES (12/22/2018 10:43 AM EDT) Specimen source [facility] Virus identified [facility] Comment: TEST(S) NOT PERFORMED: CULTURE, VIRUS, RESULT * Test cancelled per client request.* Result canceled by the ancillary 12/22/2018 10:4 3 AM EDT 12/22/2018 2:27 PM EDT Narrative Resulting Agency Comment [id number] Flavio Garcia MD LABORATORY Final Result [facility] [address] [place] [address] documented in this encounter Visit Diagnoses Diagnosis Genital warts Condyloma acuminatum documented in this encounter Care Teams Product Safety Technical Assistant Relationship Specialty Start Date End Date Flavio Garcia MD [address] [place] [address] PCP - General Internal Medicine 04/27/18 01/28/21 Unknown Pcp, Non [facility] PCP - General 01/29/21 documented as of this encounter
--- OUTSIDE RECORDS SUMMARY | 2025-07-31 02:19 | XMS_ITS | Encounter Summary ---
Author Organization [facility] Address [address] [place] [address] Care Team Providers Care Parking Lot Attendant Name Role Phone Flavio Garcia MD Primary Care Provider [phone] Unknown Pcp, Non [facility] Primary Care Provider Unava ilable Encounter Details Date Type Department Care Team (Late st Contact Info) Description 06/27/2018 Orders Only [facility] [address] [place] [phone] Flavio Garcia MD [address] [place] [address] Social History Tobacco Use Types Packs/Day Years [...] of this encounter Procedures * Due to [place] state law, this organization might not be sharing negative HIV tests. Procedure Name Priority Date/Time Associated Diagnosis Comments SYPHILIS (FTA) ANTIBODY CASCADING REFLEX TO RPR/TITER (*PREFERRED SCREEN*) Routine 06/27/2018 3:55 PM EDT Screening examination for infectious disease CHLAMYDIA TRACHOMATIS/N. GONORRHOEAE (GC) RNA, TMA (URINE) Routine 06/27/2018 3:55 PM EDT Screening examination for infectious disease HEPATITIS B SURFACE ANTIGEN Routine 06/27/2018 3:55 PM EDT Screening examination for infectious disease HEPATITIS C AB WITH REFLEX TO RNA PCR, SERUM Routine 06/27/2018 3:55 PM EDT Screening examination for infectious disease HSV 1 AND 2 IGG HERPESELECT SPECIFIC ANTIBODY Routine 06/27/2018 3:55 PM EDT Screening for STD (sexually transmitted disease) documented in this encounter Results * Due to [place] state law, this organization might not be sharing negative HIV tests. * HSV 1 AND 2 IGG HERPESELECT SPECIFIC ANTIBODY (06/27/2018 3:55 PM EDT) Herpes Simplex Virus 1 IgG <0.90 index [facility] Herpes simplex virus 2 Ab.IgG <0.90 index [facility] Comment: Index Interpretation ----- <0.90 Negative 0.90-1.09 Equivocal >1.09 Positive This assay utilizes recombinant type-specific antigens to differentiate HSV-1 from HSV-2 infections. A positive result cannot distinguish between recent and past infection. If recent HSV infection is suspected but the results are negative or equivocal, the assay should be repeated in 4-6 weeks. The performance characteristics of the assay have not been established for pediatric populations, immunocompromised patients, or screening. 06/27/2018 3:55 PM EDT 06/27/2018 10:15 PM EDT Narrative Resulting Agency Comment [id number] Flavio Garcia MD LABORATORY Final Result Performing Organization Address City/State/[facility] Co de Phone Number [facility] [address] [place] [address] * SYPHILIS (FTA) ANTIBODY CASCADING REFLEX TO RPR/TITER (*PREFERRED SCREEN*) (06/27/2018 3:55 PM EDT) Treponema pallidum Ab NEGATIVE NEGATIVE [facility] Comment: No antibodies to T. pallidum (the agent causing syphilis) were detected in the specimen. This result, however, does not exclude very recent T. pallidum infection; testing of a second specimen, collected 2-4 weeks after this specimen, is recommended if the index of suspicion for recent infection is high. 06/27/2018 3:55 PM EDT 06/27/2018 10:15 PM EDT Narrative Resulting Agency Comment [id number] Flavio Garcia MD LABORATORY Final Result Performing Organization Address City/[facility]/ZIP Co de Phone Number [facility] [address] [place] [address] * HEPATITIS C AB WITH REFLEX TO RNA PCR, SERUM (06/27/2018 3:55 PM EDT) Hepatitis C virus Ab NON-REACTI VE NON-REACT [facility] Hepatitis C virus Ab Signal/Cutoff 0.00 <1.00 [facility] 06/27/2018 3:5 5 PM EDT 06/27/2018 10:15 PM EDT Narrative Resulting Agency Comment [id number] Flavio Garcia MD LABORATORY Final Result Performing Organization Address [facility] de Phone Number [facility] [address] [place] [address] * HEPATITIS B SURFACE ANTIGEN (06/27/2018 3:55 PM EDT) Hepatitis B virus surface Ag NON-REACTI VE NON-REACT [facility] 06/27/2018 3:55 PM EDT 06/27/2018 10:15 PM EDT Narrative Resulting Agency Comment [id number] Flavio Garcia MD LABORATORY Final Result Performing Organization Address City/[facility] Co de Phone Number [facility] [address] [place] [address] * CHLAMYDIA TRACHOMATIS/N. GONORRHOEAE (GC) RNA, TMA (URINE) (06/27/2018 3:55 PM EDT) Chlamydia trachomatis rRNA NOT DETECTED NOT DETECTED [facility] Neisseria Gonorrhoeae rRNA NOT DETECTED NOT DETECTED [facility] COMMENT SEE NOTE [facility] Comment: This test was performed using the APTIMA COMBO2 Assay ([employer] The analytical performance characteristics of this assay, when used to test [facility] specimens have been determined by [facility]. 06/27/2018 3:55 PM EDT 06/27/2018 10:15 PM EDT Narrative Resulting Agency Comment [id number] Flavio Garcia MD LABORATORY Final Result [facility] [address] [place] [address] documented in this encounter Visit Diagnoses Diagnosis Screening examination for infectious disease Screening examination for unspecified infectious disease Screening for STD (sexually transmitted disease) Screening examination for venereal disease documented in this encounter Care Teams Parking Lot Attendant Relationship Specialty Start Date End Date Flavio Garcia MD [address] [place] [phone] PCP - General Internal Medicine 04/27/18 01/28/21 Unknown Pcp, Non [facility] PCP - General 01/29/21 documented as of this encounter
== END 2025-07-30 11:57 | disposition home or self-care (01) ==
LOC: HO.HMCHD 11:28
PROVIDERS: PCP Physician Assistant; Visit Provider Student in an Organized Health Care Education/Training Program
DX: Z00.00 Encounter for general adult medical examination without abnormal findings (principal); G47.33 Obstructive sleep apnea (adult) (pediatric); F32.A Depression, unspecified; C91.10 Chronic lymphocytic leukemia of B-cell type not having achieved remission

== ENCOUNTER 2025-07-30 11:28 | Outpatient (REF) | payer OTHER, SELFPAY ==
[2025-07-30 12:49] LABS: Hematocrit 47.4 % (42.0-52.0); Hemoglobin 15.1 g/dl (14.0-18.0); Mean Corpuscular HGB Conc 31.9 g/dl (31.0-36.0); Mean Corpuscular Hemoglobin 29.8 pg (27.0-33.0); Mean Corpuscular Volume 93.5 fL (80.0-98.0); NRBC Abs Auto 0.000 X10*3/uL (0.0-0.012); NRBC Pct Auto 0.0 /100WBC (0.0-0.2); Platelet Count 279 X10*3/uL (160-400); Red Blood Count 5.07 X10*6/uL (4.60-5.80)
[2025-07-30 12:51] LABS: WBC ABN SCTR FOR CBC 1
[2025-07-30 13:18] LABS: Alanine Aminotransferase 46 U/L (0-40); Albumin Level 5.0 g/dL (3.5-5.0); Alkaline Phosphatase 72 U/L (39-117); Anion Gap 13 (12-20); Aspartate Amino Transferase 70 U/L (5-37); Blood Urea Nitrogen 25 mg/dL (9-16); Calcium 10.0 mg/dL (8.4-10.2); Carbon Dioxide 27 mmol/L (22-29); Chloride 106 mmol/L (96-108); Cholesterol 278 mg/dL (<200); Estimated Glomerular Filt Rate 59; HDL Cholesterol 38 mg/dL (>40); Potassium 4.5 mmol/L (3.3-5.1); Sodium 141 mmol/L (135-145); Total Protein 7.2 g/dL (6.5-8.0); Triglycerides 408 mg/dL (<150)
[2025-07-30 13:24] LABS: White Blood Count 69.6 X10*3/uL (4.8-10.8)
[2025-07-30 14:01] LABS: Atypical Lymph Absolute Manual 1.4 x10*3/uL; Atypical Lymphs Percent Manual 2 % (0-6); Lymphocytes Absolute Manual 63.3 X10*3/uL (1.2-4.9); Lymphocytes Percent Manual 91 % (20-40); Monocytes Absolute Manual 0.7 X10*3/uL (0.1-1.2); Monocytes Percent Manual 1 % (2-11); Neutrophils Percent Manual 6 % (45-73)
[2025-07-30 14:05] LABS: RBC Morphology NORMAL; Smudge Cells PRESENT; Toxic Vacuolation PRESENT
[2025-07-30 14:06] LABS: Band Neutrophils Percent 0 % (3-5); Neutrophils Absolute Manual 4.2 X10*3/uL (2.0-8.3)
[2025-07-30 14:14] LABS: Microalbum/Creatinine Ratio Ur 6.0 ug/mg cr (<30)
[2025-07-31 06:49] LABS: Syphilis Screen Nonreactive (Nonreactive)
[2025-07-31 07:30] LABS: HBS Num1 43.10 mIU/mL (0-7.99); HBc Num1 0.03 S/CO (0.00-0.79); HBsAGNum1 0.40 S/CO (0.00-0.99); HIV Num 1 0.07 S/CO (0.00-0.99); Hepatitis A Antibody IgM 0.25 Index (0-0.79); Hepatitis B Surface Antigen Negative (Negative); ~HepC Num1 0.05 S/CO (0.00-0.79); ~Hepatitis A Antibody IgM Nonreactive (Nonreactive); ~Hepatitis B Surface Antibody REACTIVE (Nonreactive); ~Hepatitis C Antibody Nonreactive (Nonreactive)
== END 2025-07-30 11:29 | disposition home or self-care (01) ==
LOC: HO.LAB 11:28
PROVIDERS: PCP Physician Assistant; Visit Provider Student in an Organized Health Care Education/Training Program
DX: Z00.00 Encounter for general adult medical examination without abnormal findings (principal); G47.33 Obstructive sleep apnea (adult) (pediatric); F32.A Depression, unspecified; C91.10 Chronic lymphocytic leukemia of B-cell type not having achieved remission
CPT/HCPCS: 36415; 80053; 80061; 82043; 82306; 82570; 83036; 84443; 85007; 85027; 86704; 86706; 86709; 86780; 86803; 87340; 87389; 96127; 99386